=== PATIENT | female | born 1950 | race Caucasian/White ===

== ENCOUNTER 2017-03-31 08:12 | Emergency (ER) | payer OTHER ==
[~2017-03-31] VITALS: Ht 162.6 cm; Wt 56.4 kg
[2017-03-31 08:13] VITALS: BP 142/76; PULSE 80; RESP 18; O2SAT 97
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
[2017-03-31 09:15] VITALS: BP 118/79; PULSE 72; RESP 13; O2SAT 100
[2017-03-31] MEDS ORDERED: OXYC5CAP4 PO (10:10)
[2017-03-31] MEDS ORDERED: IBUP-1827 PO (10:10)
[2017-03-31 10:23] VITALS: BP 107/88; PULSE 72; RESP 14; O2SAT 98
== END 2017-03-31 10:21 | disposition home or self-care (01) ==
LOC: SED 08:12
DX: S20.219A Contusion of unspecified front wall of thorax, initial encounter (principal); S29.019A Strain of muscle and tendon of unspecified wall of thorax, initial encounter; S00.33XA Contusion of nose, initial encounter; V43.52XA Car driver injured in collision with other type car in traffic accident, initial encounter; Y93.89 Activity, other specified; Y92.410 Unspecified street and highway as the place of occurrence of the external cause; Y99.8 Other external cause status; E03.9 Hypothyroidism, unspecified; F41.8 Other specified anxiety disorders; Z98.890 Other specified postprocedural states